=== PATIENT | male | born 1985 | race Two or more races ===

== ENCOUNTER 2020-08-17 11:29 | Inpatient (IN) | payer SELFPAY ==
[~2020-08-17] VITALS: Ht 175.3 cm; Wt 96.0 kg
--- NOTE | 2020-08-17 13:00 | NUR ---
PT 88% ON ROOM AIR. PT PLACED ON 2L 02. PROVIDER NOTIFIED.
[2020-08-17 13:08] LABS: BASOPHILS % (AUTO) 0 % (0-1); EOSINOPHILS % (AUTO) 0 % (1-7); LYMPHOCYTES % (AUTO) 13 % (22-44); MEAN CORPUSCULAR HEMOGLOBIN 28.9 pg (27.5-34.5); MEAN CORPUSCULAR HGB CONC 33.7 g/dL (33.2-36.2); MEAN PLATELET VOLUME 8.1 fL (7.4-10.4); MONOCYTES % (AUTO) 5 % (2-9); NEUTROPHILS % (AUTO) 82 % (42-75); PLATELET COUNT 163 x10^3/uL (130-400); RED BLOOD COUNT 5.24 x10^6/uL (4.38-5.82); RED CELL DISTRIBUTION WIDTH 12.3 % (9.4-14.8)
[2020-08-17 13:16] LABS: CHLORIDE 102 mmol/L (98-107)
[2020-08-17] MEDS ORDERED: ACETAMINOPHEN 500 MG TABLET ONE (13:22)
[2020-08-17] MEDS ORDERED: CEFTRIAXONE PMX 1GM/50ML 50 ML ONE (13:23)
[2020-08-17 13:25] LABS: ALANINE AMINOTRANSFERASE 43 U/L (12-78); ALKALINE PHOSPHATASE 73 U/L (45-117); ANION GAP 7 mmol/L (5-15); BILIRUBIN,TOTAL 0.9 mg/dL (0.2-1.0); CALCIUM 8.6 mg/dL (8.5-10.1); CREATININE 0.86 mg/dL (0.7-1.3); TOTAL PROTEIN 7.3 g/dL (6.4-8.2)
[2020-08-17] MEDS ORDERED: CEFTRIAXONE PMX 1GM/50ML 50 ML IVPB ONE (13:30)
[2020-08-17] MEDS ORDERED: ACETAMINOPHEN 500 MG TABLET PO ONE (13:30)
[2020-08-17] MEDS ORDERED: SODIUM CHLORIDE 0.9% 1,000ML IVBOLUS ONE (13:30)
[2020-08-17] MEDS ORDERED: AZITHROMYCIN 500 MG in SODIUM CHLORIDE 0.9% 250 ML IV ONE (13:30)
[2020-08-17 13:31] LABS: RAPID INFLUENZA A Negative (Negative); RAPID INFLUENZA B Negative (Negative)
[2020-08-17 13:48] LABS: MD SCAN
[2020-08-17 16:22] LABS: MICROSCOPIC INDICATED
--- NOTE | 2020-08-17 16:51 | NUR ---
PT PROVIDED RECORD FROM [facility] CONFIRMING COVID+ RESULT.
[2020-08-17] MEDS ORDERED: GUAIFENESIN/COD200MG-20MG/10ML LIQUID PO PRN (17:30)
[2020-08-17] MEDS ORDERED: ENOXAPARIN 40 MG/0.4 ML SQ SCH (17:30)
[2020-08-17] MEDS: DEXAMETHASONE 4 MG/ML, 1ML IVPush SCH (17:30)
[2020-08-17] MEDS ORDERED: morphine SULFATE 10 MG/ML, 1ML IVPush PRN (17:30)
[2020-08-17] MEDS ORDERED: ACETAMINOPHEN 325 MG TABLET PO PRN (17:30)
[2020-08-17] MEDS ORDERED: HYDROcodone/APAP 5/325 TABLET PO PRN (17:30)
[2020-08-17] MEDS ORDERED: POLYETHYLENE GLYCOL 17 GM PACKET PO PRN (17:30)
[2020-08-17] MEDS ORDERED: ONDANSETRON 2MG/ML, 2ML IVPush PRN (17:30)
[2020-08-17] MEDS ORDERED: ONDANSETRON ODT 4 MG PO PRN (17:30)
[2020-08-17] MEDS ORDERED: DOCUSATE 100 MG CAPSULE PO PRN (17:30)
[2020-08-17] MEDS ORDERED: THIAMINE 100MG TABLET ONE (17:45)
[2020-08-17] MEDS ORDERED: ENOXAPARIN 40 MG/0.4 ML ONE (17:45)
[2020-08-17] MEDS ORDERED: DEXAMETHASONE 4 MG/ML, 1ML ONE (17:45)
[2020-08-17] MEDS: THIAMINE 100MG TABLET PO SCH (17:51)
[2020-08-17] MEDS: LACTATED RINGERS 1,000 ML IV SCH (17:51)
[2020-08-17] MEDS ORDERED: REMDESIVIR 200 MG in SODIUM CHLORIDE 0.9% 250 ML IVPB ONE (18:00)
[2020-08-17 18:05] LABS: C-REACTIVE PROTEIN, QUANT 9.36 mg/dL (0.02-0.49)
[2020-08-17 18:09] LABS: D-DIMER 0.69 ug/mlFEU (0.00-0.52)
[2020-08-17] MEDS: ASCORBIC ACID 500 MG TABLET PO SCH (19:12)
[2020-08-17] MEDS ORDERED: ACETAMINOPHEN 325 MG TABLET ONE (19:16)
[2020-08-17] MEDS ORDERED: GUAIFENESIN/DM 200-20MG, 10ML UDC ONE (19:17)
--- NOTE | 2020-08-17 20:58 | NUR ---
Report received from TETE Ontiveros. This RN to assume care.
[2020-08-17] MEDS ORDERED: OMNIPAQUE 350 MG/ML, 100ML BOTTLE ONE (21:23)
--- NOTE | 2020-08-17 22:40 | NUR ---
Patient sleeping in [place]. Respirations even and unlabored. No interventions needed at this time.
--- NOTE | 2020-08-18 01:30 | NUR ---
Patient sleeping in gurney. Respirations even and unlabored.
--- NOTE | 2020-08-18 05:29 | NUR ---
Meal tray ordered.
--- NOTE | 2020-08-18 05:29 | NUR ---
Lab at bedside.
[2020-08-18 06:05] LABS: BASOPHILS % (AUTO) 0 % (0-1); EOSINOPHILS % (AUTO) 0 % (1-7); LYMPHOCYTES % (AUTO) 16 % (22-44); MEAN CORPUSCULAR HEMOGLOBIN 29.1 pg (27.5-34.5); MEAN CORPUSCULAR HGB CONC 33.7 g/dL (33.2-36.2); MEAN PLATELET VOLUME 8.2 fL (7.4-10.4); MONOCYTES % (AUTO) 3 % (2-9); NEUTROPHILS % (AUTO) 81 % (42-75); PLATELET COUNT 179 x10^3/uL (130-400); RED BLOOD COUNT 5.43 x10^6/uL (4.38-5.82); RED CELL DISTRIBUTION WIDTH 12.4 % (9.4-14.8)
[2020-08-18 06:06] LABS: ALBUMIN 2.9 g/dL (3.4-5.0); ANION GAP 5 mmol/L (5-15); CALCIUM 8.8 mg/dL (8.5-10.1); CHLORIDE 106 mmol/L (98-107)
[2020-08-18 06:10] LABS: ALANINE AMINOTRANSFERASE 41 U/L (12-78); ALKALINE PHOSPHATASE 78 U/L (45-117); BILIRUBIN,TOTAL 0.6 mg/dL (0.2-1.0); CREATININE 0.76 mg/dL (0.7-1.3); TOTAL PROTEIN 7.5 g/dL (6.4-8.2)
--- NOTE | 2020-08-18 06:32 | NUR ---
Patient resting in [facility] with no complaints. Called housekeeping for a hospital bed. She states there is a shortage of hospital beds at this time but she will check the floors.
[2020-08-18 06:35] LABS: MD NO
--- NOTE | 2020-08-18 06:55 | NUR ---
Report given to TETE Chisholm. Patient care transferred.
--- NOTE | 2020-08-18 08:21 | NUR ---
RECEIVED REPORT FROM JACQUELYN. HENRIQUEZ RN. PT RESTING ON [facility]. VSS. HOSPITAL BED ORDERED FOR PT. AWARE OF POC FOR ADMIT TO COVID UNIT ONCE ROOM IS AVAILABLE.
--- NOTE | 2020-08-18 08:25 | NUR ---
PT PROVIDED W/ BREAKFAST TRAY.
[2020-08-18] MEDS ORDERED: THIAMINE 100MG TABLET ONE (08:48)
[2020-08-18] MEDS ORDERED: ENOXAPARIN 80 MG/0.8 ML ONE (08:48)
[2020-08-18] MEDS ORDERED: ASCORBIC ACID 500 MG TABLET ONE ×2 (08:48→16:48)
[2020-08-18] MEDS: ASCORBIC ACID 500 MG TABLET PO SCH ×2 (08:55→17:00)
[2020-08-18] MEDS: LACTATED RINGERS 1,000 ML IV SCH ×2 (08:55→20:10)
[2020-08-18] MEDS: PANTOPRAZOLE 40MG TABLET PO SCH (08:56)
[2020-08-18] MEDS: THIAMINE 100MG TABLET PO SCH ×2 (08:56→21:00)
[2020-08-18] MEDS: CHOLECALCIFEROL 5,000u TAB PO SCH (08:56)
[2020-08-18] MEDS: ENOXAPARIN 80 MG/0.8 ML SQ SCH ×2 (08:56→20:00)
--- NOTE | 2020-08-18 08:59 | NUR ---
PT RESTING ON [facility]. PILY VSS. MEDICATED PER JAN. SYBIL FROM HOUSEKEEPING STATES THEY ARE SHORT ON BEDS. WILL CONTINUE TO LOOK FOR HOSPITAL BED FOR PT.
--- NOTE | 2020-08-18 09:15 | NUR ---
REPORT GIVEN TO TETE CARABALLO.
--- NOTE | 2020-08-18 09:16 | NUR ---
report received from TETE Chisholm, this RN assuming care.
--- NOTE | 2020-08-18 10:44 | NUR ---
pt resting on gurney, pt a&o, resps even and unlabored. speech clear. pt has no complaint at this time. pt is nsr on hydrotherapist with no ectopy noted. lights dimmed at pt request. hospital bed requested from sign shop supervisor, sign shop supervisor states that there are no available hospital beds at this time, but she will bring one down to ED when available.
--- NOTE | 2020-08-18 12:46 | NUR ---
PT MOVED TO HOSPITAL BED, VS REASSESSED. PT IS A&OX4, NEURO INTACT. NO DRIFT, GRASP EQUAL BILATERALLY. PT ABLE TO SPEAK WITHOUT DIFFICULTY, RESPS EVEN AND UNLABORED. PT DENIES PAIN. 800ML CONCENTRATED YELLOW URINE EMPTIED FROM URINAL. PIV REMAINS PATENT WITH NO S/SX INFILTRATION. LR INFUSING VIA IV PUMP AT 75ML/HR. PT GIVEN CALL LIGHT. NADN THIS TIME. MEAL TRAY ORDERED FOR LUNCH, PT DENIES ANY OTHER NEEDS.
--- NOTE | 2020-08-18 13:36 | NUR ---
pt provided with lunch meal tray, tolerating well. pt titrated to room air, tolerating well with spo2 remaining >90%. pt a&o, resps even and unlabored, speaking in full sentences without difficulty. no complaint at this time.
--- NOTE | 2020-08-18 14:17 | NUR ---
pt sleeping on hospital bed, resps even and unlabored, nsr on registered nurse cardiac with no ectopy. pt saturating 92-94% on room air.
--- NOTE | 2020-08-18 14:45 | NUR ---
Report received from TETE Izaguirre. Plan of care discussed
--- NOTE | 2020-08-18 15:09 | NUR ---
report given to TETE Canas who is assuming care.
--- NOTE | 2020-08-18 15:22 | NUR ---
pt resting on hospital bed, pt a&o, resps even and unlabored. sinus tach on media monitor, no ectopy noted. pt denies any needs at this time.
[2020-08-18] MEDS ORDERED: DEXAMETHASONE 4 MG/ML, 1ML ONE (16:48)
[2020-08-18] MEDS ORDERED: CEFTRIAXONE PMX 1GM/50ML 50 ML ONE (16:48)
--- NOTE | 2020-08-18 17:07 | NUR ---
MEAL TRAY ORDERED FOR DINNER. PATIENT TO RESTROOM FOR BM.
[2020-08-18] MEDS: DEXAMETHASONE 4 MG/ML, 1ML IVPush SCH (17:13)
[2020-08-18] MEDS: CEFTRIAXONE PMX 1GM/50ML 50 ML IV SCH (17:13)
--- NOTE | 2020-08-18 17:17 | NUR ---
PATIENT MEDICATED PER EMAR, TOLERATED WELL. MONITORING BACK IN PLACE, VSS, NADN
[2020-08-18] MEDS: AZITHROMYCIN 500 MG in SODIUM CHLORIDE 0.9% 250 ML IV SCH (17:30)
--- NOTE | 2020-08-18 17:30 | NUR ---
PHARMACY SLIP SENT FOR REMDESIVIR Addendum: 08/18/20 at 1820 by JOHN PATIENT PROVIDED WITH MEAL TRAY
--- NOTE | 2020-08-18 18:52 | NUR ---
WAITING FOR ZITHROMAX TO BE COMPLETED BEFORE STARTING REMDESIVIR
[2020-08-18] MEDS: REMDESIVIR 100 MG in SODIUM CHLORIDE 0.9% 250 ML IVPB SCH (19:22)
--- NOTE | 2020-08-18 19:22 | NUR ---
REMDESIVIR STARTED AFTER PATIENT TO BATHROOM. MONITORING BACK IN PLACE, VSS, SHANNANN.CALL LIGHT IN REACH
--- NOTE | 2020-08-18 20:47 | NUR ---
PATIENT SLEEPING, RESPIRATIONS EVEN AND UNLABORED, VSS, NADN. CALL LIGHT IN REACH
--- NOTE | 2020-08-18 21:27 | NUR ---
REMDESIVIR INFUSION COMPLETE, LR INFUSING AT 75ML/HR.
--- NOTE | 2020-08-18 22:30 | NUR ---
PATIENT SLEEPING, RESPIRATIONS EVEN AND UNLABORED. VSS, SHANNANN. CALL LIGHT IN REACH, MONITORING IN PLACE
--- NOTE | 2020-08-18 23:21 | NUR ---
PATIENT SLEEPING, RESPIRATIONS EVEN AND UNLABORED. VSS, SHANNANN. CALL LIGHT IN REACH, MONITORING IN PLACE
--- NOTE | 2020-08-19 00:30 | NUR ---
PATIENT SLEEPING, RESPIRATIONS EVEN AND UNLABORED. VSS, NADN, MONITORING IN PLACE, CALL LIGHT IN REACH
--- NOTE | 2020-08-19 01:30 | NUR ---
PATIENT SLEEPING, RESPIRATIONS EVEN AND UNLABORED. VSS, NADN, MONITORING IN PLACE, CALL LIGHT IN REACH
--- NOTE | 2020-08-19 02:16 | NUR ---
PATIENT SLEEPING, RESPIRATIONS EVEN AND UNLABORED. VSS, NADN, MONITORING IN PLACE, CALL LIGHT IN REACH. PATIENT PLACED ON 2L NC DUE TO DESAT WHILE SLEEPING TO 88%
--- NOTE | 2020-08-19 02:53 | NUR ---
Report received from TETE Canas. This RN to assume care.
--- NOTE | 2020-08-19 03:15 | NUR ---
Patient sleeping in hospital bed. Respirations even and unlabored. No interventions needed at this time.
[2020-08-19] MEDS ORDERED: PANTOPRAZOLE 20MG TABLET ONE (03:25)
[2020-08-19 05:28] LABS: BASOPHILS % (AUTO) 0 % (0-1); EOSINOPHILS % (AUTO) 0 % (1-7); LYMPHOCYTES % (AUTO) 13 % (22-44); MEAN CORPUSCULAR HEMOGLOBIN 29.1 pg (27.5-34.5); MEAN CORPUSCULAR HGB CONC 33.9 g/dL (33.2-36.2); MEAN PLATELET VOLUME 8.4 fL (7.4-10.4); MONOCYTES % (AUTO) 4 % (2-9); NEUTROPHILS % (AUTO) 82 % (42-75); PLATELET COUNT 210 x10^3/uL (130-400); RED BLOOD COUNT 5.26 x10^6/uL (4.38-5.82); RED CELL DISTRIBUTION WIDTH 12.6 % (9.4-14.8)
[2020-08-19 05:30] LABS: MD NO
[2020-08-19 05:37] LABS: ALANINE AMINOTRANSFERASE 37 U/L (12-78); ALBUMIN 2.8 g/dL (3.4-5.0); ANION GAP 6 mmol/L (5-15); CALCIUM 8.5 mg/dL (8.5-10.1); CHLORIDE 107 mmol/L (98-107)
[2020-08-19 05:40] LABS: INTERNATIONAL NORMALIZED RATIO 1.01 (0.93-1.1); PROTHROMBIN TIME 10.4 Seconds (9.6-11.5)
[2020-08-19 05:41] LABS: ALKALINE PHOSPHATASE 64 U/L (45-117); BILIRUBIN,TOTAL 0.4 mg/dL (0.2-1.0); TOTAL PROTEIN 7.2 g/dL (6.4-8.2)
[2020-08-19] MEDS: PANTOPRAZOLE 40MG TABLET PO SCH (06:42)
--- NOTE | 2020-08-19 06:43 | NUR ---
Report given to TETE Garcia. Patient care transferred.
[2020-08-19] MEDS ORDERED: ENOXAPARIN 80 MG/0.8 ML ONE ×2 (09:36→20:51)
[2020-08-19] MEDS: ENOXAPARIN 80 MG/0.8 ML SQ SCH ×2 (09:42→21:14)
[2020-08-19] MEDS: ASCORBIC ACID 500 MG TABLET PO SCH ×2 (09:42→17:29)
[2020-08-19] MEDS: THIAMINE 100MG TABLET PO SCH ×2 (09:43→21:14)
[2020-08-19] MEDS: CHOLECALCIFEROL 5,000u TAB PO SCH (09:43)
--- NOTE | 2020-08-19 11:00 | NUR ---
RECEIVED REPORT FROM KENDRA EPSTEIN. ASSUMING CARE AT THIS TIME.
--- NOTE | 2020-08-19 11:30 | NUR ---
PT RESTING COMFORTABLY ON HOSPITAL BED. NADN. PT DENIES NEEDS AT THIS TIME.
[2020-08-19] MEDS ORDERED: ASCORBIC ACID 500 MG TABLET ONE (16:20)
[2020-08-19] MEDS ORDERED: DEXAMETHASONE 4 MG/ML, 1ML ONE (17:22)
[2020-08-19] MEDS ORDERED: CEFTRIAXONE PMX 1GM/50ML 50 ML ONE (17:23)
[2020-08-19] MEDS: CEFTRIAXONE PMX 1GM/50ML 50 ML IV SCH (17:29)
[2020-08-19] MEDS: DEXAMETHASONE 4 MG/ML, 1ML IVPush SCH (17:29)
[2020-08-19] MEDS: AZITHROMYCIN 500 MG in SODIUM CHLORIDE 0.9% 250 ML IV SCH (17:30)
--- NOTE | 2020-08-19 17:45 | NUR ---
PT RESTING COMFORTABLY ON HOSPITAL BED. PT ATE 100% DINNER. DENIES NEEDS AT THIS TIME.
--- NOTE | 2020-08-19 17:58 | NUR ---
REQUESTED MEDS FROM PHARMACY.
[2020-08-19] MEDS: REMDESIVIR 100 MG in SODIUM CHLORIDE 0.9% 250 ML IVPB SCH (19:09)
[2020-08-19] MEDS ORDERED: THIAMINE 100MG TABLET ONE (20:50)
--- NOTE | 2020-08-19 23:04 | NUR ---
Pt dozing in and out of sleep. Pt easily awakened. NAD. Pt remains on 2L NC. Pt given juice and crackers.
--- NOTE | 2020-08-20 01:04 | NUR ---
Pt sleeping, NAD. Pt remains on 2L NC and monitors.
--- NOTE | 2020-08-20 02:28 | NUR ---
Pt remains sleeping on bed, positive chest rise and fall noted. Pt remains on monitors.
--- NOTE | 2020-08-20 05:02 | NUR ---
Report given to TETE Villalba
[2020-08-20 05:22] LABS: ALBUMIN 2.8 g/dL (3.4-5.0); ANION GAP 6 mmol/L (5-15); CALCIUM 8.8 mg/dL (8.5-10.1); CHLORIDE 107 mmol/L (98-107)
[2020-08-20 05:26] LABS: ALANINE AMINOTRANSFERASE 50 U/L (12-78); ALKALINE PHOSPHATASE 66 U/L (45-117); BILIRUBIN,TOTAL 0.4 mg/dL (0.2-1.0); CREATININE 0.68 mg/dL (0.7-1.3); TOTAL PROTEIN 7.1 g/dL (6.4-8.2)
--- NOTE | 2020-08-20 06:08 | NUR ---
PT RESTING ON HOSPITAL BED, PT PROVIDED JUICE AND WATER, NO OTHER NEEDS AT THIS TIME, YUSRA NASCIMENTO
[2020-08-20] MEDS ORDERED: ASCORBIC ACID 500 MG TABLET ONE (08:46)
[2020-08-20] MEDS ORDERED: THIAMINE 100MG TABLET ONE (08:48)
[2020-08-20] MEDS ORDERED: ENOXAPARIN 80 MG/0.8 ML ONE (08:48)
[2020-08-20] MEDS: ENOXAPARIN 80 MG/0.8 ML SQ SCH ×2 (09:13→21:21)
[2020-08-20] MEDS: ASCORBIC ACID 500 MG TABLET PO SCH ×2 (09:14→16:42)
[2020-08-20] MEDS: THIAMINE 100MG TABLET PO SCH ×2 (09:14→21:21)
[2020-08-20] MEDS: CHOLECALCIFEROL 5,000u TAB PO SCH (09:14)
[2020-08-20] MEDS: PANTOPRAZOLE 40MG TABLET PO SCH (09:14)
[2020-08-20] MEDS: ZINC SULFATE 220 MG CAPSULE PO SCH (09:14)
[2020-08-20 09:43] VITALS: BP 117/81
[2020-08-20 09:45] VITALS: BP 118/71
[2020-08-20 12:26] VITALS: BP 107/62
[2020-08-20 14:20] VITALS: BP 99/51
[2020-08-20] MEDS: CEFTRIAXONE PMX 1GM/50ML 50 ML IV SCH (16:41)
[2020-08-20] MEDS: DEXAMETHASONE 4 MG/ML, 1ML IVPush SCH (16:42)
[2020-08-20] MEDS: REMDESIVIR 100 MG in SODIUM CHLORIDE 0.9% 250 ML IVPB SCH (17:54)
[2020-08-20 21:10] VITALS: BP 104/56
[2020-08-20] MEDS: AZITHROMYCIN 500 MG in SODIUM CHLORIDE 0.9% 250 ML IV SCH (21:21)
[2020-08-21 00:22] VITALS: BP_SYST 104; BP_SYST 115; BP_DIAS 52; BP_DIAS 56
[2020-08-21 04:59] LABS: ALANINE AMINOTRANSFERASE 110 U/L (12-78); ALBUMIN 2.9 g/dL (3.4-5.0); ANION GAP 7 mmol/L (5-15); CALCIUM 8.3 mg/dL (8.5-10.1); CHLORIDE 108 mmol/L (98-107); CREATININE 0.71 mg/dL (0.7-1.3)
[2020-08-21 05:01] LABS: ALKALINE PHOSPHATASE 65 U/L (45-117); BILIRUBIN,TOTAL 0.4 mg/dL (0.2-1.0); TOTAL PROTEIN 7.1 g/dL (6.4-8.2)
[2020-08-21 07:04] VITALS: BP 102/67
[2020-08-21] MEDS: CHOLECALCIFEROL 5,000u TAB PO SCH (08:08)
[2020-08-21] MEDS: ASCORBIC ACID 500 MG TABLET PO SCH ×3 (08:08→16:56)
[2020-08-21] MEDS: THIAMINE 100MG TABLET PO SCH ×2 (08:08→19:49)
[2020-08-21] MEDS: ZINC SULFATE 220 MG CAPSULE PO SCH (08:08)
[2020-08-21] MEDS: ENOXAPARIN 80 MG/0.8 ML SQ SCH ×2 (08:08→19:49)
[2020-08-21] MEDS: PANTOPRAZOLE 40MG TABLET PO SCH (08:08)
[2020-08-21 13:26] VITALS: BP 108/64
[2020-08-21] MEDS: DEXAMETHASONE 4 MG/ML, 1ML IVPush SCH (16:56)
[2020-08-21] MEDS: REMDESIVIR 100 MG in SODIUM CHLORIDE 0.9% 250 ML IVPB SCH (16:57)
[2020-08-21] MEDS: CEFTRIAXONE PMX 1GM/50ML 50 ML IV SCH (19:49)
[2020-08-21 20:00] VITALS: BP 110/66
[2020-08-22 00:49] VITALS: BP 95/59
[2020-08-22 05:25] LABS: ALBUMIN 2.8 g/dL (3.4-5.0); ANION GAP 8 mmol/L (5-15); BASOPHILS % (AUTO) 0 % (0-1); CALCIUM 8.4 mg/dL (8.5-10.1); CHLORIDE 106 mmol/L (98-107); EOSINOPHILS % (AUTO) 0 % (1-7); LYMPHOCYTES % (AUTO) 14 % (22-44); MEAN CORPUSCULAR HEMOGLOBIN 28.9 pg (27.5-34.5); MEAN CORPUSCULAR HGB CONC 34.1 g/dL (33.2-36.2); MEAN PLATELET VOLUME 8.9 fL (7.4-10.4); MONOCYTES % (AUTO) 7 % (2-9); NEUTROPHILS % (AUTO) 80 % (42-75); PLATELET COUNT 261 x10^3/uL (130-400); RED BLOOD COUNT 5.43 x10^6/uL (4.38-5.82); RED CELL DISTRIBUTION WIDTH 12.5 % (9.4-14.8)
[2020-08-22 05:29] LABS: ALANINE AMINOTRANSFERASE 124 U/L (12-78); ALKALINE PHOSPHATASE 64 U/L (45-117); BILIRUBIN,TOTAL 0.4 mg/dL (0.2-1.0); CREATININE 0.69 mg/dL (0.7-1.3); TOTAL PROTEIN 6.8 g/dL (6.4-8.2)
[2020-08-22 05:31] LABS: MD NO
[2020-08-22] MEDS ORDERED: CHOLECALCIFEROL 1,000 UNIT TABLET ONE (08:21)
[2020-08-22] MEDS: PANTOPRAZOLE 40MG TABLET PO SCH (08:30)
[2020-08-22] MEDS: ENOXAPARIN 80 MG/0.8 ML SQ SCH (08:30)
[2020-08-22] MEDS: ZINC SULFATE 220 MG CAPSULE PO SCH (08:30)
[2020-08-22] MEDS: THIAMINE 100MG TABLET PO SCH (08:30)
[2020-08-22] MEDS: ASCORBIC ACID 500 MG TABLET PO SCH ×2 (08:30→13:32)
[2020-08-22] MEDS: CHOLECALCIFEROL 5,000u TAB PO SCH (08:31)
[2020-08-22 08:33] VITALS: BP 97/66
[2020-08-22] MEDS ORDERED: CHOL500045 PO (10:34)
[2020-08-22] MEDS ORDERED: ASCO500T9 PO (10:34)
[2020-08-22] MEDS ORDERED: ZINC220C7 PO (10:34)
[2020-08-22] MEDS ORDERED: THIA100T67 PO (10:34)
[2020-08-22 13:34] VITALS: BP 112/70
== END 2020-08-22 14:55 | disposition home or self-care (01) | DRG 177 ==
LOC: ED 13:23 → EDIP 15:17 → SUATTDRO 16:30 → ICU 08-20 09:33
PROVIDERS: ADMIT Hospitalist; ATTEND Hospitalist
PROC: XW033E5 Introduction of Remdesivir Anti-infective into Peripheral Vein, Percutaneous Approach, New Technology Group 5 (ICD-10-PCS; principal; 2020-08-17)
DX: U07.1 COVID-19 (principal); J12.89 Other viral pneumonia; J96.01 Acute respiratory failure with hypoxia; E43 Unspecified severe protein-calorie malnutrition; F17.210 Nicotine dependence, cigarettes, uncomplicated; D72.810 Lymphocytopenia; R79.82 Elevated C-reactive protein (CRP)
CPT/HCPCS: 36415; 71045; 71275; 80053; 81001; 82728; 83605; 83615; 83735; 84145; 85025; 85379; 85384; 85610; 86140; 87040; 87081; 87400; 87635; 93005; 96374; 99285; G0378; J0456; J0696; J1100; J1650; Q9967; J7030; J7050; J7120